=== PATIENT | female | born 1970 | race Caucasian/White ===

== ENCOUNTER 2018-01-04 11:26 | Emergency (ER) | payer BC ==
[~2018-01-04] VITALS: Ht 172.7 cm; Wt 86.4 kg
[~2018-01-04 11:26] MED LIST: ADVAIR 100/28 DISKUS IH; ADVAIR IH; CLARITIN; CYMBALTA; DEPAKOTE500 MG PO; DIAMOX 250MG250 MG PO; DILAUDID 2MG/2 MG/M1 PO; EPIPEN 2-PAK1 MG/ML IM; FIORICET 325 MG1 TA1 PO; MAG-OX 400400 MG/TAB PO; NAMENDA 10MG TA10 MG PO; PAMELOR 10MG10 MG PO; PERCOCET 325 MG1 TA2 PO; PHENERGAN25 MG RC; PREDNISONE20 MG PO; PRENATAL VITAMI1 TA5 PO; PROVENTIL0.09 MG/A1 IH; RT ADVAIR 228 DISKUS IH; TOPAKAX; TREXIMET; ULTRAM 50MG TAB50 MG PO
[2018-01-04 11:30] VITALS: TEMP 98.8
[2018-01-04] MEDS ORDERED: EFFEXOR 75M75 MG/TAB PO (11:48)
[2018-01-04] MEDS ORDERED: INDERAL LA 80MG80 MG PO (11:49)
[2018-01-04] MEDS ORDERED: INDOCIN50 MG PO (11:50)
[2018-01-04] MEDS ORDERED: PHENERGAN 25 TA25 MG PO (11:51)
[2018-01-04 14:03] VITALS: BP 103/58; PULSE 93
== END 2018-01-04 14:04 | disposition home or self-care (01) ==
LOC: COL.ER 11:26
DX: G43.909 Migraine, unspecified, not intractable, without status migrainosus (principal); Z79.52 Long term (current) use of systemic steroids
CPT/HCPCS: J1170; J1885; J2550

== ENCOUNTER → 2018-08-12 | Outpatient (CLI) | payer BC ==
[~2018-08-12] MED LIST changes: +EFFEXOR 75M75 MG/TAB PO; +INDERAL LA 80MG80 MG PO; +INDOCIN50 MG PO; +PHENERGAN 25 TA25 MG PO
== END ==
LOC: MHCPAIN 09:26
DX: G89.29 Other chronic pain (principal); M54.12 Radiculopathy, cervical region; M47.812 Spondylosis without myelopathy or radiculopathy, cervical region; R51 Headache; M54.81 Occipital neuralgia
CPT/HCPCS: G0463

== ENCOUNTER → 2018-08-15 | Outpatient (CLI) | payer BC | LOC: MHCPAIN 08:29 | DX: M47.812 Spondylosis without myelopathy or radiculopathy, cervical region (principal); M54.12 Radiculopathy, cervical region | CPT/HCPCS: J1100; Q9967 ==

== ENCOUNTER → 2018-08-28 | Outpatient (CLI) | payer BC | LOC: MHCPAIN 08:56 | DX: G89.29 Other chronic pain (principal); M54.12 Radiculopathy, cervical region; M54.81 Occipital neuralgia; R51 Headache; M47.812 Spondylosis without myelopathy or radiculopathy, cervical region | CPT/HCPCS: G0463 ==

== ENCOUNTER → 2018-09-05 | Outpatient (CLI) | payer BC | LOC: MHCPAIN 10:16 | DX: M47.812 Spondylosis without myelopathy or radiculopathy, cervical region (principal); M54.12 Radiculopathy, cervical region; R51 Headache ==

== ENCOUNTER → 2018-09-10 | Outpatient (CLI) | payer BC | LOC: MHCPAIN 08:16 | DX: G89.29 Other chronic pain (principal); M54.12 Radiculopathy, cervical region; M54.81 Occipital neuralgia; R51 Headache; M47.812 Spondylosis without myelopathy or radiculopathy, cervical region | CPT/HCPCS: G0463 ==

== ENCOUNTER → 2018-09-12 | Outpatient (CLI) | payer BC | LOC: MHCPAIN 09:34 | DX: M47.812 Spondylosis without myelopathy or radiculopathy, cervical region (principal); M54.12 Radiculopathy, cervical region; M50.90 Cervical disc disorder, unspecified, unspecified cervical region; R51 Headache ==

== ENCOUNTER → 2018-10-21 | Outpatient (CLI) | payer BC | LOC: MHCPAIN 11:43 | DX: M47.812 Spondylosis without myelopathy or radiculopathy, cervical region (principal); M54.12 Radiculopathy, cervical region; M50.90 Cervical disc disorder, unspecified, unspecified cervical region | CPT/HCPCS: J1100; J2250; J3010 ==

== ENCOUNTER 2019-07-30 16:10 | Emergency (ER) | payer BC ==
[~2019-07-30] VITALS: Ht 172.7 cm; Wt 90.9 kg
[2019-07-30] MEDS ORDERED: CYMBALTA 30MG30 MG PO (16:57)
[2019-07-30] MEDS ORDERED: SONATA 10MG10 MG PO (16:58)
[2019-07-30] MEDS ORDERED: AMOXICILLIN875 MG PO (16:59)
[2019-07-30] MEDS ORDERED: EMGALITY120 MG/1 M SQ (17:00)
[2019-07-30] MEDS ORDERED: PRILOSEC 20MG20 MG PO (17:01)
[2019-07-30 18:55] VITALS: BP 128/70; PULSE 88; TEMP 98.8
== END 2019-07-30 19:03 | disposition home or self-care (01) ==
LOC: COL.ER 16:10
DX: G43.909 Migraine, unspecified, not intractable, without status migrainosus (principal); K21.9 Gastro-esophageal reflux disease without esophagitis; F32.9 Major depressive disorder, single episode, unspecified; Z98.890 Other specified postprocedural states
CPT/HCPCS: J1885; J2550; J3010

== ENCOUNTER → 2019-09-01 | Outpatient (CLI) | payer BC ==
[~2019-09-01] MED LIST changes: +AMOXICILLIN875 MG PO; +CYMBALTA 30MG30 MG PO; +EMGALITY120 MG/1 M SQ; +PRILOSEC 20MG20 MG PO; +SONATA 10MG10 MG PO
== END ==
LOC: MHCPAIN 09:02
DX: M54.81 Occipital neuralgia (principal); R51 Headache
CPT/HCPCS: G0463

== ENCOUNTER → 2019-10-06 | Outpatient (CLI) | payer BC | LOC: MHCPAIN 09-11 17:43 | DX: R51 Headache (principal); M54.81 Occipital neuralgia; M47.812 Spondylosis without myelopathy or radiculopathy, cervical region | CPT/HCPCS: G0463 ==

== ENCOUNTER 2024-04-02 15:30 | Emergency (ER) | payer SELFPAY ==
[~2024-04-02] VITALS: Ht 172.7 cm; Wt 86.4 kg
[2024-04-02 15:35] VITALS: TEMP 97.9
[2024-04-02] MEDS ORDERED: predniSONE 10 MG TAB PO ONE (16:00)
[2024-04-02] MEDS ORDERED: Albuterol/Ipratropium 3 MG-0.5 MG/3 ML Neb Soln IH ONE (16:00)
[2024-04-02] MEDS ORDERED: PREDNISONE50 MG PO (16:56)
[2024-04-02] MEDS ORDERED: IPRATROPIUM BROM3 M1 IH (17:11)
[2024-04-02 17:21] VITALS: BP 130/83; PULSE 76
== END 2024-04-02 17:23 | disposition home or self-care (01) ==
LOC: COL.ER 15:30
DX: T78.40XA Allergy, unspecified, initial encounter (principal); J45.909 Unspecified asthma, uncomplicated; X58.XXXA Exposure to other specified factors, initial encounter
CPT/HCPCS: J7512